=== PATIENT | female | born 1970 | race Caucasian/White ===

== ENCOUNTER 2017-01-01 12:52 | Inpatient (IN) | payer OTHER ==
[~2017-01-01] VITALS: Ht 172.7 cm; Wt 54.9 kg
[~2017-01-01 12:52] MED LIST: CITA10TA4 PO; HYDR10TA4 PO; LETR2.5T2 PO; ZOLE4INF IV
[2017-01-01 13:27] LABS: BLOOD UREA NITROGEN 21 mg/dL (7-18)
[2017-01-01 13:29] LABS: ASPARTATE AMINO TRANSFERASE 113 U/L (15-37)
[2017-01-01] MEDS ORDERED: POTASSIUM CHLORIDE 20 MEQ TAB.ER.PRT PO ONE (13:30)
[2017-01-01] MEDS ORDERED: PLEASE ENTER HEIGHT AND WEIGHT MC SCH (13:30)
[2017-01-01 13:39] LABS: HEMOGLOBIN 9.8 g/dL (11.7-16.4)
[2017-01-01 13:41] LABS: DIFF TOTAL CELLS COUNTED 100 CELL DIFF
[2017-01-01 13:42] LABS: VERIFY COUNTS? YES
[2017-01-01] MEDS ORDERED: FULV250D IM (13:42)
[2017-01-01 13:43] LABS: ANISOCYTOSIS 1+; MICROCYTOSIS 1+; POLYCHROMASIA 1+
[2017-01-01 13:48] LABS: SCHISTOCYTES 1+
[2017-01-01] MEDS ORDERED: POTASSIUM CHLORIDE 20 MEQ TAB.ER.PRT ONE (14:07)
[2017-01-01] MEDS ORDERED: LORazepam 2 MG/ML, 1ML ONE (14:42)
[2017-01-01] MEDS ORDERED: ALTEPLASE 1 MG/ML ONE (15:45)
[2017-01-01] MEDS ORDERED: ALTEPLASE IV ONE ×3 (16:00→16:30)
[2017-01-01] MEDS ORDERED: NS + 40MEQ KCL 1,000 ML IV ONE (17:22)
[2017-01-01] MEDS ORDERED: MORPHINE SULFATE 4 MG/ML, 1ML IVPush PRN (17:30)
[2017-01-01] MEDS ORDERED: POLYETHYLENE GLYCOL 17 GM PACKET PO PRN (17:30)
[2017-01-01] MEDS ORDERED: OXYcodone IR 5MG TABLET PO PRN (17:30)
[2017-01-01] MEDS ORDERED: LABETALOL 5MG/ML, 20ML IV PRN (17:30)
[2017-01-01] MEDS ORDERED: DOCUSATE 100 MG CAPSULE PO PRN (17:30)
[2017-01-01] MEDS ORDERED: SODIUM CHLORIDE 0.9%, 500ML IVBOLUS ONE (17:30)
[2017-01-01] MEDS ORDERED: TEMAZEPAM 15 MG CAPSULE PO PRN (17:30)
[2017-01-01] MEDS: HYDROCORTISONE 100 MG INJ. IVPush SCH (19:47)
[2017-01-02] VITALS (13 sets, daily range): BP systolic 99–132; BP diastolic 56–87
[2017-01-02] MEDS: NS + 20MEQ KCL 1,000 ML IV SCH ×3 (00:02→18:36)
[2017-01-02] MEDS: HYDROCORTISONE 100 MG INJ. IVPush SCH ×3 (03:04→18:26)
[2017-01-02 06:41] LABS: ASPARTATE AMINO TRANSFERASE 104 U/L (15-37); BLOOD UREA NITROGEN 18 mg/dL (7-18)
[2017-01-02 06:49] LABS: HEMOGLOBIN 7.8 g/dL (11.7-16.4)
[2017-01-02] MEDS: PANTOPRAZOLE 40 MG IV IVP SCH (08:04)
[2017-01-03] VITALS (15 sets, daily range): BP systolic 84–109; BP diastolic 50–68
[2017-01-03] MEDS: LORazepam 2 MG/ML, 1ML IVPush PRN (02:32)
[2017-01-03] MEDS: NS + 20MEQ KCL 1,000 ML IV SCH ×2 (02:32→11:49)
[2017-01-03] MEDS: HYDROCORTISONE 100 MG INJ. IVPush SCH ×2 (02:32→11:49)
[2017-01-03 06:17] LABS: BLOOD UREA NITROGEN 11 mg/dL (7-18)
[2017-01-03 06:20] LABS: ASPARTATE AMINO TRANSFERASE 89 U/L (15-37)
[2017-01-03 07:47] LABS: HEMOGLOBIN 7.3 g/dL (11.7-16.4)
[2017-01-03 07:49] LABS: ANISOCYTOSIS 1+; MICROCYTOSIS 1+; SCHISTOCYTES 1+
[2017-01-03] MEDS: PANTOPRAZOLE 40 MG IV IVP SCH (10:08)
[2017-01-03 18:36] LABS: HEMOGLOBIN 6.9 g/dL (11.7-16.4)
[2017-01-03 18:40] LABS: DIFF TOTAL CELLS COUNTED 100 CELL DIFF
[2017-01-03 18:43] LABS: ANISOCYTOSIS 1+; MICROCYTOSIS 1+; VERIFY COUNTS? YES
[2017-01-03 18:44] LABS: HYPOCHROMIA 1+; POLYCHROMASIA 2+; SCHISTOCYTES 2+
[2017-01-03] MEDS ORDERED: HYDROCORTISONE 100 MG INJ. IVPush ONE (19:30)
[2017-01-03] MEDS ORDERED: ALBUMIN HUMAN 5% 3,000 ML IV SCH (20:30)
[2017-01-03] MEDS ORDERED: CALCIUM GLUCONATE 4.6 MEQ/10 ML IVPush ONE (20:30)
[2017-01-04] VITALS (20 sets, daily range): BP systolic 55–105; BP diastolic 49–66
[2017-01-04 06:44] LABS: HEMOGLOBIN 9.9 g/dL (11.7-16.4)
[2017-01-04 07:24] LABS: DIFF TOTAL CELLS COUNTED 100 CELL DIFF
[2017-01-04 07:25] LABS: ANISOCYTOSIS 1+; VERIFY COUNTS? YES
[2017-01-04 07:26] LABS: POLYCHROMASIA 2+
[2017-01-04 07:27] LABS: SCHISTOCYTES 1+
[2017-01-04 07:28] LABS: OVALOCYTES 1+; POIKILOCYTOSIS 1+
[2017-01-04] MEDS: PANTOPRAZOLE 40 MG IV IVP SCH (08:26)
[2017-01-04] MEDS: CALCIUM GLUCONATE 4.6 MEQ/10 ML IVPush SCH (10:45)
[2017-01-05] VITALS (11 sets, daily range): BP systolic 98–114; BP diastolic 55–68
[2017-01-05 05:07] LABS: HEMOGLOBIN 8.9 g/dL (11.7-16.4)
[2017-01-05 05:08] LABS: BLOOD UREA NITROGEN 14 mg/dL (7-18)
[2017-01-05 05:13] LABS: ASPARTATE AMINO TRANSFERASE 64 U/L (15-37)
[2017-01-05 06:18] LABS: DIFF TOTAL CELLS COUNTED 100 CELL DIFF
[2017-01-05 06:20] LABS: ANISOCYTOSIS 2+; SCHISTOCYTES 1+; VERIFY COUNTS? YES
[2017-01-05 06:21] LABS: POIKILOCYTOSIS 1+; POLYCHROMASIA 2+
[2017-01-05 06:22] LABS: MICROCYTOSIS 1+; OVALOCYTES 1+
[2017-01-05] MEDS: CALCIUM GLUCONATE 4.6 MEQ/10 ML IVPush SCH (09:26)
[2017-01-05] MEDS: PANTOPRAZOLE 40 MG IV IVP SCH (12:02)
[2017-01-05] MEDS ORDERED: GADOBUTROL 7.5 MMOL/7.5 ML PFS ONE (16:29)
[2017-01-06] VITALS (16 sets, daily range): BP systolic 91–107; BP diastolic 48–67
[2017-01-06 05:35] LABS: ASPARTATE AMINO TRANSFERASE 65 U/L (15-37); BLOOD UREA NITROGEN 13 mg/dL (7-18)
[2017-01-06] MEDS: ONDANSETRON 2MG/ML, 2ML IVP PRN (08:51)
[2017-01-06] MEDS: PANTOPRAZOLE 40 MG IV IVP SCH (08:51)
[2017-01-06 09:51] LABS: HEMOGLOBIN 9.3 g/dL (11.7-16.4)
[2017-01-06 10:17] LABS: DIFF TOTAL CELLS COUNTED 100 CELL DIFF
[2017-01-06 10:21] LABS: VERIFY COUNTS? YES
[2017-01-06 10:22] LABS: ANISOCYTOSIS 1+; MICROCYTOSIS 1+; OVALOCYTES 1+; POLYCHROMASIA 2+; SCHISTOCYTES 1+
[2017-01-06] MEDS: ACETAMINOPHEN 325 MG TABLET PO PRN (11:03)
[2017-01-06] MEDS: CALCIUM GLUCONATE 4.6 MEQ/10 ML IVPush SCH (14:35)
[2017-01-07] VITALS (12 sets, daily range): BP systolic 95–112; BP diastolic 56–68
[2017-01-07 04:21] LABS: HEMOGLOBIN 7.8 g/dL (11.7-16.4)
[2017-01-07 04:48] LABS: DIFF TOTAL CELLS COUNTED 100 CELL DIFF
[2017-01-07 04:52] LABS: ANISOCYTOSIS 2+; MICROCYTOSIS 1+; VERIFY COUNTS? YES
[2017-01-07 04:53] LABS: OVALOCYTES 1+; POIKILOCYTOSIS 1+; POLYCHROMASIA 2+; SCHISTOCYTES 1+
[2017-01-07 04:54] LABS: HOWELL-JOLLY BODIES 1+; LARGE PLATELETS 1+
[2017-01-07] MEDS ORDERED: LIDOCAINE 2%, 20ML ONE (08:08)
[2017-01-07] MEDS ORDERED: MIDAZOLAM 1 MG/ML, 5ML ONE (08:21)
[2017-01-07] MEDS ORDERED: NALOXONE 1 MG/ML, 2ML ONE (08:22)
[2017-01-07] MEDS ORDERED: FENTANYL PF 100 MCG/2ML ONE (08:22)
[2017-01-07] MEDS ORDERED: FLUMAZENIL 0.1 MG/1 ML, 5ML ONE (08:22)
[2017-01-07] MEDS: PANTOPRAZOLE 40 MG IV IVP SCH (10:05)
[2017-01-08 02:25] VITALS: BP 105/53
[2017-01-08 04:08] LABS: ASPARTATE AMINO TRANSFERASE 82 U/L (15-37); BLOOD UREA NITROGEN 24 mg/dL (7-18)
[2017-01-08 04:21] LABS: HEMOGLOBIN 7.2 g/dL (11.7-16.4)
[2017-01-08 04:56] LABS: DIFF TOTAL CELLS COUNTED 100 CELL DIFF
[2017-01-08 04:59] LABS: ANISOCYTOSIS 2+; MICROCYTOSIS 1+; OVALOCYTES 1+; POIKILOCYTOSIS 1+; POLYCHROMASIA 2+; SCHISTOCYTES 1+; VERIFY COUNTS? YES
[2017-01-08 05:00] LABS: HOWELL-JOLLY BODIES 1+
[2017-01-08 05:01] LABS: LARGE PLATELETS 1+
[2017-01-08 08:30] VITALS: BP 110/69
[2017-01-08] MEDS: PANTOPRAZOLE 40 MG IV IVP SCH (09:09)
[2017-01-08 19:26] VITALS: BP 109/69
[2017-01-09] VITALS (12 sets, daily range): BP systolic 96–111; BP diastolic 58–70
[2017-01-09 05:47] LABS: BLOOD UREA NITROGEN 21 mg/dL (7-18)
[2017-01-09 06:04] LABS: HEMOGLOBIN 6.8 g/dL (11.7-16.4)
[2017-01-09 06:16] LABS: DIFF TOTAL CELLS COUNTED 100 CELL DIFF
[2017-01-09 06:18] LABS: ANISOCYTOSIS 2+; MICROCYTOSIS 1+; OVALOCYTES 1+; POLYCHROMASIA 1+; SCHISTOCYTES 1+; VERIFY COUNTS? YES
[2017-01-09 06:19] LABS: HOWELL-JOLLY BODIES 1+
[2017-01-09] MEDS ORDERED: HYDROCORTISONE 100 MG INJ. IVPush ONE (07:00)
[2017-01-09] MEDS: PANTOPRAZOLE 40 MG IV IVP SCH (09:37)
[2017-01-09 11:06] LABS: DILUTE PROTHROMBIN TIME (DPT) 45.6 sec (0.0-55.0); DILUTE RUSSELL'S VIPER VENOM 39.6 sec (0.0-44.0); LUPUS REFLEX INTERPRETATION Comment: (.); PTT-LA 39.7 sec (0.0-43.6)
[2017-01-09] MEDS: ACETAMINOPHEN 325 MG TABLET PO PRN (11:07)
[2017-01-09] MEDS: ATORVASTATIN 10 MG TABLET PO SCH (21:08)
[2017-01-10 02:00] VITALS: BP 101/63
[2017-01-10 05:40] LABS: BLOOD UREA NITROGEN 21 mg/dL (7-18)
[2017-01-10 05:44] LABS: ASPARTATE AMINO TRANSFERASE 70 U/L (15-37)
[2017-01-10 05:54] LABS: HEMOGLOBIN 8.3 g/dL (11.7-16.4)
[2017-01-10 06:20] LABS: DIFF TOTAL CELLS COUNTED 100 CELL DIFF; VERIFY COUNTS? YES
[2017-01-10 06:21] LABS: POLYCHROMASIA 1+; SCHISTOCYTES 2+
[2017-01-10 06:22] LABS: ANISOCYTOSIS 3+; MICROCYTOSIS 1+; POIKILOCYTOSIS 1+; SPHEROCYTES 1+
[2017-01-10] MEDS ORDERED: POTASSIUM CHLORIDE 20 MEQ TAB.ER.PRT PO ONE (07:00)
[2017-01-10 07:04] VITALS: BP 100/62
[2017-01-10] MEDS: PANTOPROZOLE 40MG TABLET PO SCH (09:05)
[2017-01-10 18:03] VITALS: BP 106/68
[2017-01-10 19:11] VITALS: BP 100/65
[2017-01-10] MEDS: ATORVASTATIN 10 MG TABLET PO SCH (20:15)
[2017-01-10 21:06] LABS: BETA-2 GLYCOPROTEIN I IGA <9 (0-25)
[2017-01-11] VITALS (7 sets, daily range): BP systolic 90–124; BP diastolic 57–71
[2017-01-11 05:26] LABS: HEMOGLOBIN 8.8 g/dL (11.7-16.4)
[2017-01-11 05:37] LABS: BLOOD UREA NITROGEN 16 mg/dL (7-18)
[2017-01-11 06:35] LABS: DIFF TOTAL CELLS COUNTED 100 CELL DIFF
[2017-01-11 06:39] LABS: ANISOCYTOSIS 2+; MICROCYTOSIS 1+; OVALOCYTES 1+; POIKILOCYTOSIS 1+; POLYCHROMASIA 2+; SCHISTOCYTES 1+; SPHEROCYTES 1+; VERIFY COUNTS? YES
[2017-01-11 06:40] LABS: HOWELL-JOLLY BODIES 1+
[2017-01-11] MEDS: PANTOPROZOLE 40MG TABLET PO SCH (09:01)
[2017-01-11] MEDS: ATORVASTATIN 10 MG TABLET PO SCH (20:48)
[2017-01-12 01:59] VITALS: BP 104/65
[2017-01-12 07:17] VITALS: BP 100/64
[2017-01-12] MEDS: PANTOPROZOLE 40MG TABLET PO SCH (09:06)
[2017-01-12 09:52] LABS: HEMOGLOBIN 9.6 g/dL (11.7-16.4)
[2017-01-12 10:21] LABS: DIFF TOTAL CELLS COUNTED 100 CELL DIFF
[2017-01-12 10:49] LABS: ANISOCYTOSIS 2+; MICROCYTOSIS 1+; VERIFY COUNTS? YES
[2017-01-12 10:50] LABS: POIKILOCYTOSIS 1+; POLYCHROMASIA 1+; SCHISTOCYTES 1+; SPHEROCYTES 1+
[2017-01-12 10:51] LABS: HOWELL-JOLLY BODIES 1+
[2017-01-12 12:44] VITALS: BP 109/66
[2017-01-12 13:52] VITALS: BP 100/62
[2017-01-12] MEDS ORDERED: OMNIPAQUE 350 MG/ML, 100ML BOTTLE ONE (15:44)
[2017-01-12 16:54] VITALS: BP 99/61
[2017-01-12 21:05] VITALS: BP 97/60
[2017-01-12] MEDS: ATORVASTATIN 10 MG TABLET PO SCH (21:22)
[2017-01-13 03:26] VITALS: BP 101/62
[2017-01-13 05:53] LABS: HEMOGLOBIN 8.9 g/dL (11.7-16.4)
[2017-01-13 06:13] LABS: ASPARTATE AMINO TRANSFERASE 77 U/L (15-37); BLOOD UREA NITROGEN 20 mg/dL (7-18)
[2017-01-13 06:14] LABS: DIFF TOTAL CELLS COUNTED 100 CELL DIFF
[2017-01-13 06:16] LABS: VERIFY COUNTS? YES
[2017-01-13 06:17] LABS: ANISOCYTOSIS 2+; POLYCHROMASIA 2+; SPHEROCYTES 1+
[2017-01-13 06:18] LABS: MICROCYTOSIS 1+; SCHISTOCYTES 2+
[2017-01-13 08:03] VITALS: BP 104/69
[2017-01-13] MEDS ORDERED: SINCALIDE (KINEVAC) 5 MCG ONE (09:15)
[2017-01-13] MEDS: PANTOPROZOLE 40MG TABLET PO SCH (10:04)
[2017-01-13] MEDS ORDERED: MAGNESIUM SULFATE PMX 2GM/50ML 50 ML IV ONE (12:00)
[2017-01-13 15:05] VITALS: BP 98/58
[2017-01-13] MEDS: ATORVASTATIN 10 MG TABLET PO SCH (19:40)
[2017-01-13 20:56] VITALS: BP 90/50
[2017-01-14 02:06] VITALS: BP 103/67
[2017-01-14 04:42] LABS: ASPARTATE AMINO TRANSFERASE 78 U/L (15-37); BLOOD UREA NITROGEN 24 mg/dL (7-18)
[2017-01-14 04:53] LABS: HEMOGLOBIN 8.5 g/dL (11.7-16.4)
[2017-01-14 05:41] LABS: DIFF TOTAL CELLS COUNTED 100 CELL DIFF
[2017-01-14 05:42] LABS: ANISOCYTOSIS 2+; MICROCYTOSIS 1+; POLYCHROMASIA 2+; VERIFY COUNTS? YES
[2017-01-14 05:44] LABS: SCHISTOCYTES 1+
[2017-01-14 07:37] VITALS: BP 97/59
[2017-01-14] MEDS: PANTOPROZOLE 40MG TABLET PO SCH (10:05)
[2017-01-14 11:29] LABS: HEMOGLOBIN 8.8 g/dL (11.7-16.4)
[2017-01-14 11:30] LABS: DIFF TOTAL CELLS COUNTED 100 CELL DIFF
[2017-01-14] MEDS ORDERED: GADOBUTROL 7.5 MMOL/7.5 ML PFS ONE (11:30)
[2017-01-14 11:33] LABS: ANISOCYTOSIS 2+; MICROCYTOSIS 1+; VERIFY COUNTS? YES
[2017-01-14 11:34] LABS: POLYCHROMASIA 2+; SCHISTOCYTES 1+; SPHEROCYTES 1+
[2017-01-14 14:36] VITALS: BP 113/67
[2017-01-14 20:41] VITALS: BP 97/60
[2017-01-14] MEDS: ATORVASTATIN 10 MG TABLET PO SCH (20:50)
[2017-01-14 22:30] VITALS: BP 114/74
[2017-01-14 23:19] VITALS: BP 100/58
[2017-01-15 01:39] VITALS: BP 99/64
[2017-01-15 06:07] LABS: BLOOD UREA NITROGEN 27 mg/dL (7-18)
[2017-01-15 06:22] LABS: ASPARTATE AMINO TRANSFERASE 77 U/L (15-37)
[2017-01-15 06:33] LABS: HEMOGLOBIN 8.3 g/dL (11.7-16.4)
[2017-01-15 06:34] LABS: DIFF TOTAL CELLS COUNTED 100 CELL DIFF
[2017-01-15 06:36] LABS: VERIFY COUNTS? YES
[2017-01-15 06:37] LABS: ANISOCYTOSIS 1+; POLYCHROMASIA 2+
[2017-01-15 06:38] LABS: SCHISTOCYTES 1+
[2017-01-15 07:38] VITALS: BP 104/64
[2017-01-15] MEDS: PANTOPROZOLE 40MG TABLET PO SCH (09:50)
[2017-01-15 13:33] LABS: BLOOD UREA NITROGEN 23 mg/dL (7-18)
[2017-01-15 13:40] LABS: ASPARTATE AMINO TRANSFERASE 88 U/L (15-37)
[2017-01-15 13:44] VITALS: BP 99/62
[2017-01-15 19:28] VITALS: BP 112/70
[2017-01-15] MEDS: ATORVASTATIN 10 MG TABLET PO SCH (20:49)
[2017-01-16 01:26] VITALS: BP 90/55
[2017-01-16 07:37] VITALS: BP 99/63
[2017-01-16] MEDS: PANTOPROZOLE 40MG TABLET PO SCH (08:11)
[2017-01-16] MEDS ORDERED: MECLIZINE CHEWABLE 25 MG TAB PO PRN (11:30)
[2017-01-16 11:53] LABS: HEMOGLOBIN 8.3 g/dL (11.7-16.4)
[2017-01-16 12:21] LABS: DIFF TOTAL CELLS COUNTED 100 CELL DIFF
[2017-01-16 12:22] LABS: VERIFY COUNTS? YES
[2017-01-16 12:26] LABS: ANISOCYTOSIS 1+; HYPOCHROMIA 1+; POLYCHROMASIA 2+; SCHISTOCYTES 1+
[2017-01-16] MEDS ORDERED: HEPARIN wt. based STROKE protocol MC PRN (15:00)
[2017-01-16] MEDS: HEPARIN 25,000 UNITS/500ML PMX 500 ML IV PRN (16:52)
[2017-01-16 20:16] VITALS: BP 96/59
[2017-01-16] MEDS: ATORVASTATIN 10 MG TABLET PO SCH (22:24)
[2017-01-17 01:06] VITALS: BP 98/61
[2017-01-17] MEDS: ACETAMINOPHEN 325 MG TABLET PO PRN (06:20)
[2017-01-17 07:14] VITALS: BP 97/61
[2017-01-17 07:33] LABS: HEMOGLOBIN 7.8 g/dL (11.7-16.4)
[2017-01-17] MEDS: PANTOPROZOLE 40MG TABLET PO SCH (08:40)
[2017-01-17 09:40] LABS: DIFF TOTAL CELLS COUNTED 100 CELL DIFF
[2017-01-17 09:43] LABS: ANISOCYTOSIS 1+; HYPOCHROMIA 1+; POIKILOCYTOSIS 1+; POLYCHROMASIA 2+; SCHISTOCYTES 1+; VERIFY COUNTS? YES
[2017-01-17 15:35] VITALS: BP 105/67
[2017-01-17 19:46] VITALS: BP 107/52
[2017-01-17] MEDS: ATORVASTATIN 10 MG TABLET PO SCH (20:55)
[2017-01-18] VITALS (7 sets, daily range): BP systolic 83–99; BP diastolic 50–64
[2017-01-18] MEDS: HEPARIN 25,000 UNITS/500ML PMX 500 ML IV PRN (01:32)
[2017-01-18] MEDS: ACETAMINOPHEN 325 MG TABLET PO PRN (01:35)
[2017-01-18 06:02] LABS: HEMOGLOBIN 7.5 g/dL (11.7-16.4)
[2017-01-18 06:10] LABS: ASPARTATE AMINO TRANSFERASE 150 U/L (15-37); BLOOD UREA NITROGEN 17 mg/dL (7-18)
[2017-01-18 06:26] LABS: DIFF TOTAL CELLS COUNTED 100 CELL DIFF
[2017-01-18 06:28] LABS: VERIFY COUNTS? YES
[2017-01-18 06:29] LABS: ANISOCYTOSIS 1+; OVALOCYTES 1+; POIKILOCYTOSIS 1+; POLYCHROMASIA 2+; SCHISTOCYTES 1+
[2017-01-18 06:30] LABS: HYPOCHROMIA 1+
[2017-01-18] MEDS: PANTOPROZOLE 40MG TABLET PO SCH (07:57)
[2017-01-18 10:52] LABS: HEMOGLOBIN 7.7 g/dL (11.7-16.4)
[2017-01-18 11:19] LABS: DIFF TOTAL CELLS COUNTED 100 CELL DIFF
[2017-01-18 11:21] LABS: ANISOCYTOSIS 1+; HYPOCHROMIA 1+; OVALOCYTES 1+; POIKILOCYTOSIS 1+; POLYCHROMASIA 2+; SCHISTOCYTES 1+; VERIFY COUNTS? YES
[2017-01-18] MEDS ORDERED: DIPHENHYDRAMINE 50 MG/ML, 1ML IVPush ONE (11:30)
[2017-01-18] MEDS ORDERED: ACETAMINOPHEN 325 MG TABLET PO ONE (11:30)
[2017-01-18] MEDS: ATORVASTATIN 10 MG TABLET PO SCH (22:05)
[2017-01-19 04:26] VITALS: BP 90/52
[2017-01-19] MEDS: ACETAMINOPHEN 325 MG TABLET PO PRN (04:39)
[2017-01-19 05:04] LABS: BLOOD UREA NITROGEN 20 mg/dL (7-18)
[2017-01-19 05:09] LABS: HEMOGLOBIN 8.1 g/dL (11.7-16.4)
[2017-01-19 05:27] LABS: ASPARTATE AMINO TRANSFERASE 152 U/L (15-37)
[2017-01-19 05:50] LABS: DIFF TOTAL CELLS COUNTED 100 CELL DIFF
[2017-01-19 05:51] LABS: VERIFY COUNTS? YES
[2017-01-19 05:52] LABS: ANISOCYTOSIS 1+; HYPOCHROMIA 1+; POLYCHROMASIA 2+
[2017-01-19 05:53] LABS: SCHISTOCYTES 1+
[2017-01-19 06:02] LABS: POIKILOCYTOSIS 1+
[2017-01-19 07:38] VITALS: BP 97/60
[2017-01-19] MEDS: HEPARIN 25,000 UNITS/500ML PMX 500 ML IV PRN (09:07)
[2017-01-19] MEDS: PANTOPROZOLE 40MG TABLET PO SCH (09:57)
[2017-01-19 18:44] VITALS: BP 98/62
[2017-01-19] MEDS: ATORVASTATIN 10 MG TABLET PO SCH (20:42)
[2017-01-20] VITALS (10 sets, daily range): BP systolic 92–116; BP diastolic 55–73
[2017-01-20 04:09] LABS: DIFF TOTAL CELLS COUNTED 100 CELL DIFF
[2017-01-20 04:15] LABS: HEMOGLOBIN 6.8 g/dL (11.7-16.4)
[2017-01-20 04:38] LABS: ANISOCYTOSIS 1+; HYPOCHROMIA 1+; POIKILOCYTOSIS 1+; POLYCHROMASIA 2+; SCHISTOCYTES 1+; VERIFY COUNTS? YES
[2017-01-20] MEDS: PANTOPROZOLE 40MG TABLET PO SCH (07:55)
[2017-01-20] MEDS: HEPARIN 25,000 UNITS/500ML PMX 500 ML IV PRN (14:59)
[2017-01-20] MEDS: ATORVASTATIN 10 MG TABLET PO SCH (20:56)
[2017-01-21 01:44] VITALS: BP 99/62
[2017-01-21 05:00] VITALS: BP 103/68
[2017-01-21 08:18] VITALS: BP 99/62
[2017-01-21 08:28] LABS: HEMOGLOBIN 9.2 g/dL (11.7-16.4)
[2017-01-21 08:42] LABS: DIFF TOTAL CELLS COUNTED 100 CELL DIFF
[2017-01-21 09:03] LABS: VERIFY COUNTS? YES
[2017-01-21 09:04] LABS: HYPOCHROMIA 1+; MICROCYTOSIS 1+; POIKILOCYTOSIS 1+; POLYCHROMASIA 1+; SCHISTOCYTES 1+
[2017-01-21 09:07] LABS: ANISOCYTOSIS 2+
[2017-01-21] MEDS: PANTOPROZOLE 40MG TABLET PO SCH (09:58)
[2017-01-21] MEDS: ATORVASTATIN 10 MG TABLET PO SCH (19:44)
[2017-01-21] MEDS: HEPARIN 25,000 UNITS/500ML PMX 500 ML IV PRN (19:44)
[2017-01-21 20:07] VITALS: BP 109/68
[2017-01-22 03:19] VITALS: BP 90/54
[2017-01-22 03:58] LABS: BLOOD UREA NITROGEN 22 mg/dL (7-18)
[2017-01-22 04:02] LABS: ASPARTATE AMINO TRANSFERASE 180 U/L (15-37)
[2017-01-22 04:11] LABS: HEMOGLOBIN 8.6 g/dL (11.7-16.4)
[2017-01-22 04:19] LABS: DIFF TOTAL CELLS COUNTED 100 CELL DIFF
[2017-01-22 04:21] LABS: VERIFY COUNTS? YES
[2017-01-22 04:22] LABS: ANISOCYTOSIS 2+; HYPOCHROMIA 1+; MICROCYTOSIS 1+; POIKILOCYTOSIS 1+; POLYCHROMASIA 1+; SCHISTOCYTES 1+
[2017-01-22] MEDS: PANTOPROZOLE 40MG TABLET PO SCH (08:06)
[2017-01-22 08:12] VITALS: BP 100/58
[2017-01-22 15:14] VITALS: BP 102/68
[2017-01-22] MEDS: LORazepam 2 MG/ML, 1ML IVPush PRN ×3 (17:17→20:55)
[2017-01-22 19:54] VITALS: BP 92/60
[2017-01-22] MEDS: ATORVASTATIN 10 MG TABLET PO SCH ×2 (20:12→20:36)
[2017-01-23] MEDS: LORazepam 2 MG/ML, 1ML IVPush PRN ×3 (01:56→16:50)
[2017-01-23 02:10] VITALS: BP 101/64
[2017-01-23 08:04] VITALS: BP 109/69
[2017-01-23] MEDS: PANTOPROZOLE 40MG TABLET PO SCH (08:22)
[2017-01-23] MEDS ORDERED: ASPIRIN 325 MG TABLET EC PO SCH (09:00)
[2017-01-23] MEDS: ONDANSETRON 2MG/ML, 2ML IVP PRN (11:53)
== END 2017-01-23 18:17 | disposition hospice, home (50) | DRG 64 ==
LOC: ED 14:12 → EDIP 16:15 → CCU 18:40 → 5SO 01-02 18:41 → 3NW 01-21 12:45
PROVIDERS: ADMIT Internal Medicine; ATTEND Family Medicine
PROC: 02HV33Z Insertion of Infusion Device into Superior Vena Cava, Percutaneous Approach (ICD-10-PCS; 2017-01-03)
PROC: B5181ZA Fluoroscopy of Superior Vena Cava using Low Osmolar Contrast, Guidance (ICD-10-PCS; 2017-01-03)
PROC: B548ZZA Ultrasonography of Superior Vena Cava, Guidance (ICD-10-PCS; 2017-01-03)
PROC: 07DR3ZX Extraction of Iliac Bone Marrow, Percutaneous Approach, Diagnostic (ICD-10-PCS; 2017-01-08)
PROC: 0T9B70Z Drainage of Bladder with Drainage Device, Via Natural or Artificial Opening (ICD-10-PCS; 2017-01-11)
PROC: 30233L1 Transfusion of Nonautologous Fresh Plasma into Peripheral Vein, Percutaneous Approach (ICD-10-PCS; principal; 2017-01-20)
PROC: 30233N1 Transfusion of Nonautologous Red Blood Cells into Peripheral Vein, Percutaneous Approach (ICD-10-PCS; 2017-01-20)
PROC: 30233K1 Transfusion of Nonautologous Frozen Plasma into Peripheral Vein, Percutaneous Approach (ICD-10-PCS; 2017-01-20)
DX: I63.413 Cerebral infarction due to embolism of bilateral middle cerebral arteries (principal); M31.1 Thrombotic microangiopathy; E43 Unspecified severe protein-calorie malnutrition; I61.1 Nontraumatic intracerebral hemorrhage in hemisphere, cortical; R17 Unspecified jaundice; C79.51 Secondary malignant neoplasm of bone; E27.40 Unspecified adrenocortical insufficiency; Z68.1 Body mass index [BMI] 19.9 or less, adult; Z90.13 Acquired absence of bilateral breasts and nipples; Z82.49 Family history of ischemic heart disease and other diseases of the circulatory system; D72.829 Elevated white blood cell count, unspecified; D53.9 Nutritional anemia, unspecified; E87.6 Hypokalemia; Z85.3 Personal history of malignant neoplasm of breast; C50.919 Malignant neoplasm of unspecified site of unspecified female breast; Z17.0 Estrogen receptor positive status [ER+]; Z90.11 Acquired absence of right breast and nipple; D63.0 Anemia in neoplastic disease; T38.0X5A Adverse effect of glucocorticoids and synthetic analogues, initial encounter; Z51.5 Encounter for palliative care
CPT/HCPCS: 36415; 36514; 36556; 70450; 70544; 70553; 71010; 71275; 76700; 76937; 77001; 77012; 78227; 80047; 80048; 80053; 80061; 81001; 81003; 82247; 82248; 82542; 82607; 82746; 83010; 83615; 83735; 84145; 84443; 85018; 85025; 85045; 85097; 85384; 85397; 85520; 85610; 85613; 85651; 85670; 85705; 85730; 85732; 86146; 86147; 86157; 86850; 86880; 86900; 86923; 87040; 87081; 88237; 88264; 88280; 88305; 88311; 88313; 88341; 88342; 88360; 93005; 93306; 93880; 93970; 96361; 96365; 99156; 99157; 99292; A9585; G0364; J1644; J2250; J2405; J2997; J3010; J3480; J3490; Q9967; 92523-GN; A9537; C1751; C9113; C9898; G0461; J0610; J1200; J1642; J1720; J2060; J2310; J2805; J3475; J7040; J7512; P9017; P9040